=== PATIENT | male | born 1995 | race Caucasian/White ===

== ENCOUNTER 2016-07-05 09:14 | Emergency (ER) | payer BC ==
[2016-07-05 09:35] VITALS: BP 121/65; PULSE 50; TEMP 97.5
--- NOTE | 2016-07-05 09:42 | PDOC ---
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, who was on methotrexate in the past, but has been off for a while He is on no medications at this time Patient states yesterday he was playing hockey, and he was wearing a helmet, and he was pushed over backwards, striking his helmeted posterior head on the ice There was no loss of consciousness, and he remembers everything that happened to him He was able to get himself back up, and get back into play in the game Patient was doing fine when he went to bed last night He awakened this morning with some mild nausea, and a mild posterior headache He denies any focal neurologic complaints He denies any vomiting He denies any amnesia He denies any double vision or blurred vision He denies any numbness or tingling He denies any difficulty walking He denies any visual symptoms He denies any other complaints at this time, and the remainder of the review of systems is negative Past History - Past Medical History Allergies/Adverse Reactions: Allergies Allergy/AdvReac Type Severity Reaction Status Date / Time prednisone Allergy Itching Verified 07/05/16 09:17 Home Medications: Ambulatory Orders Loratadine 10 mg PO DAILY 07/05/16 Multivit-Min/Iron Fum/Folic AC [[id number] Tablet] 1 each PO DAILY 07/05/16 Other medical history: RHEUMATOID ARTHRITIS - Psycho/Social/Smoking Cessation Hx Anxiety: No Suicidal Ideation: No Smoking History: Never smoked Information on smoking cessation initiated: No Hx Alcohol Use: Yes (SOCIAL) Drug/Substance Use Hx: No Substance Use Type: Alcohol *Physical Exam - Vital Signs Last Vital Signs Temp Pulse Resp BP Pulse Ox 97.5 F L 50 L 16 121/65 100 07/05/16 09:16 07/05/16 09:16 07/05/16 09:16 07/05/16 09:16 07/05/16 09:16 - Physical Exam Comments: 07/05/16 09:47 Physical exam Last Vital Signs Temp Pulse Resp BP Pulse Ox 97.5 F L 50 L 16 121/65 100 07/05/16 09:16 07/05/16 09:16 07/05/16 09:16 07/05/16 09:16 07/05/16 09:16 GENERAL: The patient is awake, alert, and fully oriented, and in no apparent distress. The patient is ambulatory without difficulty HEAD: Normal with no signs of trauma. EYES: Pupils equal, round and reactive to light, extraocular movements intact, sclera anicteric, conjunctiva are normal. ENT: Moist mucous membranes. No hemotympanum or Colby sign Nares normal NECK: Normal range of motion, supple There is no C-spine tenderness EXTREMITIES: Normal range of motion, no edema. No clubbing or cyanosis. No cords, erythema, or tenderness. NEURO: Mental status: The patient is oriented x3. Cranial nerves: Cranial nerves II through XII are intact Motor: The upper extremities are 5 over 5 in all muscle groups. The lower extremities are 5 over 5 in all muscle groups. Sensation: Sensation is intact to light touch throughout. Cerebellar: Nnihlz-zaigza-dyai is normal in both upper extremities. Heel-knee- mercado is normal in both lower extremities. Gait: Normal. Heel and toe walking are normal. Tandem gait is normal. Completely nonfocal neurologic exam Normal speech, normal gait. PSYCH: Normal mood, normal affect. SKIN: Warm, Dry, no bruising seen HEART: regular LUNGS: clear Medical Decision Making - Medical Decision Making 07/05/16 09:49 Closed head injury without alarm findings or alarm symptoms, or alarm mechanism of injury Minimal concussion-type symptoms this morning, with completely normal neurologic exam No indication for head CT by clinical decision rules Will have patient rest, no sports or gym for 2 weeks Will follow-up with his primary care physician Will return immediately if he worsens in any way *DC/Admit/Observation/Transfer Diagnosis at time of Disposition: Closed head injury, Mild concussion - Discharge Dispostion Disposition: HOME Condition at time of disposition: Good - Patient Instructions Printed Discharge Instructions: DI for Closed Head Injury, DI for Concussion Additional Instructions: Rest-no sports or gym for 2 weeks Tylenol or Motrin for headaches Followup with your primary care physician in 24-48 hours Return immediately if you worsen in any way as we discussed!!
[2016-07-05 09:55] VITALS: BMI 26.5
== END 2016-07-05 09:55 | disposition home or self-care (01) ==
LOC: FER 09:14
DX: F07.81 Postconcussional syndrome (principal); S09.90XA Unspecified injury of head, initial encounter; W18.39XA Other fall on same level, initial encounter; Y93.22 Activity, ice hockey; Y92.330 Ice skating rink (indoor) (outdoor) as the place of occurrence of the external cause; M06.9 Rheumatoid arthritis, unspecified
CPT/HCPCS: 99282-25

== ENCOUNTER 2023-11-26 17:30 | Emergency (ER) | payer BC, OTHER ==
[2023-11-26 17:37] VITALS: BMI 28.3
[2023-11-26] MEDS ORDERED: TETRACAINE 0.5% OPHTH SOLN 2 ML BOTTLE ONE (17:37)
[2023-11-26] MEDS ORDERED: FLUORESCEIN NA 1 EA STRIP ONE ×2 (17:38→17:43)
[2023-11-26 17:47] VITALS: BP 130/72; PULSE 54; RESP 16; TEMP 98
[2023-11-26] MEDS: TETRACAINE 0.5% HCL 0.6ML DROPPER.BOTTLE OD ONE (17:48)
[2023-11-26] MEDS: FLUORESCEIN NA 1 EA STRIP OD ONE (17:48)
[2023-11-26] MEDS ORDERED: OFLOXACIN 0.3% OPHTHALMIC SOLUTION 5 ML BOTTLE OD ONE (18:17)
[2023-11-26] MEDS: OFLOXACIN 0.3% OPHTHALMIC SOLUTION 5 ML BOTTLE OD SCH (18:42)
== END 2023-11-26 18:41 | disposition home or self-care (01) ==
LOC: FER 17:30
DX: S05.02XA Injury of conjunctiva and corneal abrasion without foreign body, left eye, initial encounter (principal)
CPT/HCPCS: 99283-25